=== PATIENT | female | born 1975 | race Caucasian/White ===

== ENCOUNTER 2020-04-15 14:53 | Emergency (ER) | payer BC ==
[2020-04-15] MEDS ORDERED: HYDROCODONE/ACETAMINOPHEN 5-325 MG TABLET PO ONE (15:14)
--- NOTE | 2020-04-15 15:17 | ER Document Report ---
ED Medical Screen (RME) - General Chief Complaint: Breast Problem Stated Complaint: RIGHT BREAST PAIN Time Seen by Provider: 04/15/20 15:10 Primary Care Provider: JOSE DE JESUS ROJAS MD [Primary Care Provider] - Follow up as needed Information source: Patient Notes: Patient presents with right breast tenderness and swelling. Patient denies any fever. Patient states area rapidly started to swell since yesterday. Patient saw her primary doctor who consulted with surgery who advised her to come here for further evaluation including ultrasound. I have greeted and performed a rapid initial assessment of this patient. A comprehensive ED assessment and evaluation of the patient, analysis of test results and completion of the medical decision making process will be conducted by additional ED providers. TRAVEL OUTSIDE OF THE [place] IN LAST 30 DAYS: No - Related Data Allergies/Adverse Reactions: nitrofurantoin [From Macrobid] Allergy (Verified 04/15/20 15:08) Physical Exam - General General appearance: Alert Notes: Large exquisitely tender lump to right breast, no overlying erythema Doctor's Discharge - Discharge Referrals: JOSE DE JESUS ROJAS MD [Primary Care Provider] - Follow up as needed
[2020-04-15 16:12] LABS: ABSOLUTE BASOPHILS # (AUTO) 0.2 10^3/uL (0.0-0.2); ABSOLUTE EOSINOPHILS # (AUTO) 0.2 10^3/uL (0.0-0.6); ABSOLUTE LYMPHOCYTES (AUTO) 2.6 10^3/uL (0.5-4.7); ABSOLUTE MONOCYTES (AUTO) 0.6 10^3/uL (0.1-1.4); ABSOLUTE NEUT (AUTO) 8.7 10^3/uL (1.7-8.2); BASOPHILS % (AUTO) 1.3 % (0-2); EOSINOPHILS % (AUTO) 1.2 % (0-6); HEMATOCRIT 41.4 % (36.0-47.0); HEMOGLOBIN 14.3 g/dL (12.0-15.5); LYMPHOCYTES % (AUTO) 21.3 % (13-45); MEAN CORPUSCULAR HGB CONC 34.6 g/dL (32.0-36.0); MEAN CORPUSCULAR VOLUME 92 fl (80-97); MONOCYTES % (AUTO) 5.3 % (3-13); PLATELET COUNT 289 10^3/uL (150-450); RED BLOOD COUNT 4.48 10^6/uL (3.72-5.28); RED CELL DISTRIBUTION WIDTH 13.1 % (11.5-14.0); SEGMENTED NEUTROPHILS % (AUTO) 70.9 % (42-78); TOTAL CELLS COUNTED % (AUTO) 100 %; WHITE BLOOD COUNT 12.3 10^3/uL (4.0-10.5)
[2020-04-15 16:26] LABS: ANION GAP 8 (5-19); BLOOD UREA NITROGEN 14 mg/dL (7-20); CARBON DIOXIDE 26 mmol/L (22-30); CHLORIDE 103 mmol/L (98-107); GLUCOSE 100 mg/dL (75-110); POTASSIUM 4.1 mmol/L (3.6-5.0)
--- NOTE | 2020-04-15 16:28 | RADIOLOGY REPORT (SQ) ---
EXAM DESCRIPTION: U/S BREAST UNILATERAL LIMITED IMAGES COMPLETED DATE/TIME: 04/15/2020 3:54 pm REASON FOR STUDY: eval r breast lump, cyst/abscess? COMPARISON: None TECHNIQUE: Static and Realtime grayscale interrogation of focal area(s) of concern in the right [address](s) acquired. Selected color doppler/spectral images saved to PACS. LIMITATIONS: None. FINDINGS: Well-circumscribed hypoechoic lesion measuring 4 cm in maximum diameter. No internal flow on color Doppler. Posterior through transmission. IMPRESSION: Benign cyst. No evidence of abscess. BIRAD: 2 Benign findings.. RECOMMENDATION: RECOMMENDED FOLLOW-UP: Follow-up as clinically indicated. COMMENT: The [employer] ([employer]) has developed recommendations for screening MRI of the breasts in certain patient populations, to be used in conjunction with mammography. Breast MRI s urveillance may be appropriate for women with more than 20% lifetime risk of developing breast cancer as determined by genetic testing, significant family history of the disease, or history of mantle r adiation for Hodgkins Disease. ACR Practice Guidelines 2008. TECHNICAL DOCUMENTATION: FINDING NUMBER: (1) ASSESSMENT: (1) JOB ID: [id number] 2010 [employer]- All Rights Reserved Reading location - IP/workstation name: [email or web address]
--- NOTE | 2020-04-15 16:29 | ER Document Report ---
ED Breast Problem - General Chief Complaint: Breast Lump Stated Complaint: RIGHT BREAST PAIN Time Seen by Provider: 04/15/20 15:10 Primary Care Provider: JOSE DE JESUS ROJAS MD [ACTIVE PROVISIONAL STAFF] - Follow up as needed Notes: CHIEF COMPLAINT: Right breast pain and swelling HPI: 44-year-old female with history of breast cysts sent in by PCP for evaluation of possible right breast abscess. Patient reports that she has had small cysts in the past diagnosed both with ultrasound and mammogram. Has never had an abscess. States that they noticed a small lump in the right lateral breast maybe a week ago but over the last 24 hours has noticed significant increase in size swelling and pain. Denies nipple discharge denies fever ROS: See HPI - all other systems were reviewed and are otherwise negative Constitutional: no fever Eyes: no drainage, no blurred vision ENT: no runny nose, no sore throat Cardiovascular: no chest pain Resp: no SOB, no cough GI: no vomiting, no diarrhea, no abdominal pain : no dysuria Integumentary: Positive right breast swelling Allergy: no hives Musculoskeletal: no extremity pain or swelling Neurological: no numbness/tingling, no weakness MEDICATIONS: I agree with the patient medications as charted by the RN. ALLERGIES: I agree with the allergies as charted by the RN. PAST MEDICAL HISTORY/PAST SURGICAL HISTORY: Reviewed and agree as charted by RN. SOCIAL HISTORY: Reviewed and agree as charted by RN. FAMILY HISTORY: No significant familial comorbid conditions directly related to patient complaint EXAM: With female field supervisor present Reviewed vital signs as charted by RN. CONSTITUTIONAL: Alert and oriented and responds appropriately to questions. Well-appearing; well-nourished HEAD: Normocephalic; atraumatic EYES: Conjunctivae clear, sclerae non-icteric ENT: normal nose; no rhinorrhea; moist mucous membranes NECK: Supple without meningismus; non-tender; no cervical lymphadenopathy, no masses CARD: RRR; no murmurs, no clicks, no rubs, no gallops; symmetric distal pulses RESP: Normal chest excursion without splinting or tachypnea; breath sounds clear and equal bilaterally; no wheezes, no rhonchi, no rales, pulse oximetry 98% on room air not hypoxic Breast: Pendulous breasts are noted. There is a large firm tender area measuring approximately 6 cm in the right upper lateral aspect of the right breast between 9:00 and 12:00. Not directly under the nipple. No significant overlying erythema. Area is somewhat mobile ABD/GI: Normal bowel sounds; non-distended; soft, non-tender BACK: The back appears normal and is non-tender to palpation, there is no CVA tenderness EXT: Normal ROM in all joints; non-tender to palpation; no cyanosis, no ef fusions, no edema SKIN: Normal color for age and race; warm; dry; good turgor; no acute lesions n oted NEURO: Moves all extremities equally; Motor and sensory function intact PSYCH: The patient's mood and manner are appropriate. Grooming and personal hygiene are appropriate. MDM: 44-year-old female with a large right breast mass, ultrasound suggests a cyst. She has had breast cysts in the past. Dr. Goodwin surgery in to see the patient. We will initially perform needle biopsy and aspiration with possibility of going to OR depending on aspirate TRAVEL OUTSIDE OF THE [place] IN LAST 30 DAYS: No - Related Data Allergies/Adverse Reactions: nitrofurantoin [From Macrobid] Allergy (Verified 04/15/20 15:08) Home Medications: bc powder as needed daily Past Medical History - General Information source: Patient - Social History Smoking Status: Current Every Day Smoker Chew tobacco use (# tins/day): No Frequency of alcohol use: Occasional Drug Abuse: None Family History: Reviewed & Not Pertinent Patient has homicidal ideation: No Physical Exam - Vital signs Vitals: Temp Pulse Resp BP Pulse Ox 98.1 F 106 H 16 140/87 H 98 04/15/20 15:19 04/15/20 15:19 04/15/20 15:19 04/15/20 15:19 04/15/20 15:19 Course - Re-evaluation Re-evalutation: 04/15/20 17:[address] Goodwin. I have spoken with him. Patient may be discharged home he requests no narcotics. May follow-up with Dr. Landeros in 1 week. - Vital Signs Vital signs: Temp Pulse Resp BP Pulse Ox 98.1 F 106 H 16 140/87 H 98 04/15/20 15:19 04/15/20 15:19 04/15/20 15:19 04/15/20 15:19 04/15/20 15:19 - Laboratory Result Diagrams: 04/15/20 15:45 04/15/20 15:45 Laboratory results interpreted by me: 04/15/20 15:45 WBC 12.3 H Absolute Neuts (auto) 8.7 H Discharge - Discharge Clinical Impression: Cyst of right breast Condition: Stable Disposition: HOME, SELF-CARE Instructions: Breast Lumps ([facility]) Additional Instructions: Take Voltaren consistently for pain. Follow-up with Dr. Landeros within 1 week call tomorrow to obtain appointment time and day. Return for fever greater than 101 worsening breast pain swelling or redness Prescriptions: Diclofenac Sodium [Voltaren 50 Mg Tablet.Dr] 50 mg PO BID #20 tablet.dr Forms: Return to Work Referrals: JOSE DE JESUS ROJAS MD [ACTIVE PROVISIONAL STAFF] - Follow up as needed ESE LANDEROS MD [ACTIVE STAFF] - Follow up as needed
[2020-04-15] MEDS ORDERED: LIDOCAINE 1% INJ (10 MG/ML) 10 ML MDV INJ ONE (16:31)
--- NOTE | 2020-04-15 17:27 | PDOC CONSULTATION ---
Consultation Consult Date: 04/15/20 Provider Consulted: GIULIANO ROBERTS Consult reason:: Right breast pain and mass History of Present Illness Admission Date/PCP: MILTON SERRA MD History of Present Illness: NOHEMI JOHNSON is a 44 year old female, healthy, with a history of right breast cyst for the past few years, she underwent mammogram last year which identified several small right breast cysts. 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 An ultrasound of the breast was done revealing benign findings as per benign right breast cyst. Social History Smoking Status: Current Every Day Smoker Electronic Cigarette use?: No Family History Family History: Reviewed & Not Pertinent Parental Family History Reviewed: No Children Family History Reviewed: No Sibling(s) Family History Reviewed.: No Medication/Allergy Home Medications: Aspirin/Caffeine [Bc Powder Packet] 1 pkt PO DAILY PRN 04/15/20 Allergies/Adverse Reactions: nitrofurantoin [From Macrobid] Allergy (Verified 04/15/20 15:08) Physical Exam Vital Signs: Temp Pulse Resp BP Pulse Ox 98.1 F 106 H 16 140/87 H 98 04/15/20 15:19 04/15/20 15:19 04/15/20 15:19 04/15/20 15:19 04/15/20 15:19 General appearance: PRESENT: no acute distress, thin Eye exam: PRESENT: EOMI Mouth exam: PRESENT: moist, neck supple Neck exam: PRESENT: full ROM Respiratory exam: PRESENT: clear to auscultation dilan Cardiovascular exam: PRESENT: RRR Breast: PRESENT: Mass/Lump - Right breast = large, indurated mass, about 7 cm in diameter, somewhat tender, with normal overlying skin, no nipple retraction, no skin discoloration, no nipple drainage, no dimpling GI/Abdominal exam: PRESENT: soft Rectal exam: PRESENT: deferred Extremities exam: PRESENT: full ROM Musculoskeletal exam: PRESENT: full ROM Neurological exam: PRESENT: alert, awake, oriented to time, CN II-XII grossly intact, normal gait Psychiatric exam: PRESENT: appropriate affect Skin exam: PRESENT: warm Results Laboratory Results: 04/15/20 15:45 04/15/20 15:45 04/15/20 04/15/20 15:45 15:45 WBC 12.3 H RBC 4.48 Hgb 14.3 Hct 41.4 MCV 92 MCH 32.0 MCHC 34.6 RDW 13.1 Plt Count 289 Seg Neutrophils % 70.9 Sodium 137.2 Potassium 4.1 Chloride 103 Carbon Dioxide 26 Anion Gap 8 BUN 14 Creatinine 0.63 Est GFR ( Amer) > 60 Glucose 100 Calcium 9.0 Impressions: Breast Ultrasound 04/15/20 15:13 IMPRESSION: Benign cyst. No evidence of abscess. Assessment & Plan - Diagnosis (1) Benign cyst of right breast Is this a current diagnosis for this admission?: Yes - Plan Summary Plan Summary: Assessment: Right breast pain with indurated mass Physical exam reveals a benign breast mass, without skin changes, no nipple drainage Normal bilateral mammogram and right breast ultrasound last year except for breast cyst which underwent aspiration with benign findings Current right breast ultrasound = benign breast cyst, category 2 Plan: Fine-needle aspiration right breast cysts in the emergency room tonight Fluid obtained following aspiration is clear, no tissue or blood noted Send fluid for cytology and culture Follow-up with Dr. Landreos in the office in 1 week Charge from emergency room tonight
--- NOTE | 2020-04-15 17:33 | Operative Report ---
Operative Report DATE OF SURGERY: 04/15/20 PREOPERATIVE DIAGNOSIS: Right breast mass POSTOPERATIVE DIAGNOSIS: Right breast benign cyst OPERATION: Right breast benign cyst FNA SURGEON: GIULIANO ROBERTS ANESTHESIA: Local - 10 mL's 1% lidocaine without epinephrine TISSUE REMOVED OR ALTERED: 10 mL of clear, pale yellow fluid COMPLICATIONS: None ESTIMATED BLOOD LOSS: Not applicable INTRAOPERATIVE FINDINGS: 10 mL of clear, pale yellow fluid PROCEDURE: The procedure was done at bedside in the emergency room, the right breast was palpated and the mass identified in the upper lateral quadrant, the skin was cleaned with alcohol and infiltrated with lidocaine. An 18-gauge needle was used to enter the cyst which was completely aspirated and it collapsed following this. Approximately 10 mL of clear, pale yellow fluid were aspirated, this was sent for both cytology and culture. Based on the results of the FNA and ultrasound of the breast, this is very likely a benign breast cyst which requires no additional treatment at this point. The patient can be discharged to home from the emergency room tonight. Follow-up with Dr. Landeros in a week
[2020-04-15 17:40] VITALS: BP 123/69
== END 2020-04-15 17:40 | disposition home or self-care (01) ==
LOC: ER 14:53
DX: N60.01 Solitary cyst of right breast (principal); F17.200 Nicotine dependence, unspecified, uncomplicated; Z88.1 Allergy status to other antibiotic agents
CPT/HCPCS: 36415; 76642; 80048; 85025; 87070; 87075; 87205; 99284